=== PATIENT | female | born 1930 | race Caucasian/White ===

== ENCOUNTER → 2017-03-13 | Day surgery (SDC) | payer MEDICARE ==
[~2017-03-13] VITALS: Ht 152.4 cm; Wt 68.0 kg
[~2017-03-13] MED LIST: ANASTROZOLE1 M1 PO; ANTIVERT25 MG PO; CARVEDILOL12.5 MG PO; CELEBREX200 MG PO; COZAAR100 MG PO; DEXILANT60 M1; K + POTASSIUM20 MEQ PO; PHENERGAN12.5 M1; SYNTHROID,LEVO75 MCG PO; ULTRAM50 MG PO; VICODIN 500 MG-1 TAB PO; WATER PILL; [UNRECOGNIZED DRUG - REMARK]; [UNRECOGNIZED DRUG - REMARK]
--- NOTE | ~2017-03-13 | O ---
[place], [place] OPERATIVE NOTE NAME: SHAQ BELL UNIT #: [id number] ROOM: DOCTOR: ELADIO MORENO MD BIRTHDATE: [birth year] DOS: 03/13/2017 GASTROENDOSCOPIC REPORT HISTORY OF PRESENT ILLNESS: This is an 86-year-old patient who presented with chief complaint of right colon carcinoma status post resection. PAST MEDICAL HISTORY: Associated hypertension, hypercholesterolemia, colonic CA. PAST SURGICAL HISTORY: Right hemicolectomy, cholecystectomy. SOCIAL HISTORY: Nonsmoker, nonalcohol consumer. ALLERGIES: No known medication. PROCEDURE: Today's procedure part of investigation is colonoscopy plus polypectomy. PREMEDICATION: Versed and Diprivan. SCOPE: Olympus forward viewing colonoscope 10L video. REPORT: After putting the patient in the left lateral position and after application of lubricant to the scope, the scope was introduced. Thereafter, under direct visualization, advanced through the length of colon without difficulty. Right colon was approached and anastomotic site for right hemicolectomy noticed. Scope was gradually withdrawn from ascending, transverse, descending colon. A sessile polypoid lesion in sigmoid colon with piecemeal polypectomy was removed. Air was suctioned out. The patient was extubated, tolerated the procedure well. IMPRESSION: Sigmoid colon polyp, status post piecemeal polypectomy, status post right hemicolectomy for colonic carcinoma. PLAN AND DISCUSSION: High fiber diet. ACTIVITY: Ad veronica. FOLLOWUP: Routinely with you in office, p.r.n. visit with us in GI Clinic. Thank you very much indeed for your kind referral [place], [place] OPERATIVE NOTE NAME: SHAQ BELL UNIT #: [id number] ROOM: DOCTOR: ELADIO MORENO MD BIRTHDATE: [birth year] ELADIO MORENO MD CM:OPRECORD:OPERATIVE NOTE [id number] SWAPNA MORENO MD 03/14/17 0726 interface
[2017-03-13 08:30] VITALS: BP 139/58
[2017-03-13 09:59] VITALS: BP 137/56
[2017-03-13 10:00] VITALS: BP 133/51
[2017-03-13 10:14] VITALS: BP 139/64
== END | disposition home or self-care (01) ==
LOC: SDC 01-29 08:00
DX: K63.5 Polyp of colon (principal); Z90.49 Acquired absence of other specified parts of digestive tract; I10 Essential (primary) hypertension; E78.00 Pure hypercholesterolemia, unspecified; Z85.038 Personal history of other malignant neoplasm of large intestine; F32.9 Major depressive disorder, single episode, unspecified; K21.9 Gastro-esophageal reflux disease without esophagitis; Z85.828 Personal history of other malignant neoplasm of skin; F41.9 Anxiety disorder, unspecified; M19.90 Unspecified osteoarthritis, unspecified site; Z98.890 Other specified postprocedural states; Z82.49 Family history of ischemic heart disease and other diseases of the circulatory system

== ENCOUNTER → 2017-05-02 | Outpatient (CLI) | payer MEDICARE | END | disposition home or self-care (01) | LOC: MAMMO 10:42 | DX: C50.211 Malignant neoplasm of upper-inner quadrant of right female breast (principal) ==

== ENCOUNTER → 2018-04-22 | Outpatient (CLI) | payer MEDICARE | END | disposition home or self-care (01) | LOC: MAMMO 14:08 | DX: C50.211 Malignant neoplasm of upper-inner quadrant of right female breast (principal); R92.8 Other abnormal and inconclusive findings on diagnostic imaging of breast; I74.2 Embolism and thrombosis of arteries of the upper extremities ==

== ENCOUNTER 2018-07-13 14:24 | Inpatient (IN) | payer MEDICARE ==
[~2018-07-13] VITALS: Ht 152.4 cm; Wt 64.2 kg
--- NOTE | ~2018-07-13 | EKG ---
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
--- NOTE | ~2018-07-13 | EKG ---
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
--- NOTE | ~2018-07-13 | CON ---
[place], [place] REPORT OF CONSULTATION NAME: SHAQ BELL [facility] [id number] UNIT #: [id number] ROOM: 504 DOCTOR: TAVO GONZALEZ MD BIRTHDATE: [birth year] DOS: 07/14/2018 CARDIOLOGY CONSULTATION REASON FOR CONSULTATION: Precordial chest pain. HISTORY OF PRESENT ILLNESS: The patient is an 88-year-old woman who has no previous history of coronary disease. She tells me that she has been evaluated for chest pain in the past with stress test and did have a catheterization in [place] several years ago. To her knowledge, all of these tests were normal. She was in her normal state of health until yesterday. She ate some kielbasa and sauerkraut. After that, she developed an epigastric pain, which radiated into her back and into her chest. This was associated with nausea and vomiting along with a constant, aching sensation in her chest and shortness of breath. She also had mild diarrhea. Symptoms lasted for several hours and therefore she was brought to the Emergency Room for further assessment. In the Emergency Room, her electrocardiogram showed sinus rhythm with nonspecific inferolateral ST segment changes. Serial troponin levels were normal. She was admitted to the hospital for further assessment. PAST MEDICAL HISTORY: Includes: 1. Breast cancer. 2. Colon cancer. 3. History of closed humerus fracture. 4. Essential hypertension. 5. Hypothyroidism. 6. Anxiety. 7. History of cholecystectomy. 8. History of colon resection. 9. History of breast biopsy. FAMILY HISTORY: Negative for early coronary artery disease. Her father of cancer at age 52. Her mother of old age at 85. MEDICATIONS: Prior to admission, amlodipine 5 mg daily, carvedilol 12.5 mg one-half tablet b.i.d., Celebrex 200 mg daily, citalopram 40 mg daily and levothyroxine 50 mcg daily. ALLERGIES: She has no known drug allergies. REVIEW OF SYSTEMS: The patient denies diplopia or loss of vision. She denies lightheadedness or syncope. She denies focal weakness or history of stroke. She denies fevers, chills, sweats or recent weight gain. She denies any nausea or vomiting except for the day of admission when she did have significant nausea and vomiting that was self-limited. She did have diarrhea associated with this, but denies any coffee-ground emesis, hemoptysis, hematemesis or blood in her stools. She denies any melena. She denies any blood in her urine. She denies any skin rashes. She denies any peripheral edema. She does have degenerative joint disease. The remainder of the review of systems is negative except as noted above. [place], [place] REPORT OF CONSULTATION NAME: SHAQ BELL UNIT #: [id number] ROOM: [facility] DOCTOR: TAVO GONZALEZ MD BIRTHDATE: [birth year] SOCIAL HISTORY: The patient does not smoke or consume alcohol. PHYSICAL EXAMINATION: GENERAL: The patient is well-nourished white female, awake, alert and oriented. She looks younger than her stated age. VITAL SIGNS: Pulse is 56 and regular, blood pressure is 121/50. She is afebrile. She weighs 64.2 kg and has a body mass index of 27.6. HEENT: Normocephalic and atraumatic. Extraocular muscles are intact. Sclerae are clear. Pupils equal, round and react to light. The oral mucosa is moist. Tongue is midline. NECK: Supple. She has no jugular distention. Carotids are full. There are no bruits. She has no neck or supraclavicular masses, no thyromegaly. LUNGS: Respirations are unlabored. Her chest is clear to auscultation and percussion. She has no presacral edema or chest wall tenderness. CARDIOVASCULAR: Has a regular rhythm. She has a soft fourth heart sound, but no third heart sound or murmur. The PMI is not displaced. There is no precordial heave, lift or thrill. ABDOMEN: Soft and normally active without masses, organomegaly or bruits. EXTREMITIES: Showed no edema. Peripheral pulses are easily palpated in the feet bilaterally. LABORATORY DATA: I reviewed her electrocardiogram, which showed sinus rhythm with nonspecific inferolateral ST segment depression, but no ST elevation. IMPRESSION: 1. Atypical chest pain. 2. History of hypertension. 3. History of hypothyroidism, on replacement. 4. History of colon cancer. 5. History of breast cancer. PLAN: We will proceed with a pharmacologic stress test. Further recommendations depend upon the results of the stress test. We thank the hospitalist physicians for asking our advice regarding her care. TAVO GONZALEZ MD CM:CONSTR:REPORT OF CONSULTATION 1055 07/14/18 1155 interface
--- NOTE | ~2018-07-13 | EKG ---
[place], [place] ELECTROCARDIOGRAM REPORT NAME: SHAQ BELL UNIT #: [id number] ROOM: 504 DOCTOR: PEYTON DRAFT REPORT BIRTHDATE: [birth year] [facility] Test Date: 2018-07-13 Test Time: 14:26:50 Pat Name: SHAQ BELL Department: Room: [facility] Gender: F Assembly Associate: Polyl Sancehz : 1930 Requested By: PO NAM Order Number: [id number] Reading MD: Mello Olivares MD Measurements Intervals [place] Rate: 76 P: 37 [place]: 157 QRS: 34 QRSD: 84 T: 75 QT: 412 QTc: 464 Interpretive Statements Sinus rhythm Anterior infarct, old Minimal ST depression, lateral leads Electronically Signed On 07-14-2018 14:35:38 PST by Mello Olivares MD CM:EKGRPT:ELECTROCARDIOGRAM REPORT 1426 1435 PO DUBOSE DRAFT REPORT PO NAM DO
[2018-07-13 14:27] VITALS: BP 161/74
[2018-07-13 14:44] LABS: BASO % 0.2 % (0.0-1.0); EOS % 0.3 % (1.0-4.0); HEMATOCRIT 42.7 % (37.0-47.0); HEMOGLOBIN 14.2 g/dl (12.0-16.0); LYMPH # 1.1 10*3/uL (1.3-4.4); LYMPH % 9.7 % (27.0-41.0); MEAN CELL VOLUME 92.4 fl (81.0-99.0); MEAN CORPUSCULAR HGB 30.7 pg (27.0-31.0); MEAN CORPUSCULAR HGB CONC 33.3 g/dl (33.0-37.0); MEAN PLATELET VOLUME 10.5 fl (9.6-12.3); MONO # 0.3 10*3/uL (0.1-1.0); MONO % 2.3 % (3.0-9.0); NEUT # 9.8 10*3/uL (2.3-7.9); NEUT % 87.1 % (47.0-73.0); PLATELET COUNT AUTOMATED 232 10*3/uL (130-400); RED BLOOD COUNT 4.62 10*6/uL (4.10-5.10); RED CELL DISTRI WIDTH 13.4 % (0-14.5); WHITE BLOOD COUNT 11.3 10*3/uL (4.8-10.8)
[2018-07-13] MEDS ORDERED: CELECOXIB200 M1 PO (15:03)
[2018-07-13] MEDS ORDERED: AMLODIPINE BESYL5 MG PO (15:03)
[2018-07-13] MEDS ORDERED: LEVOTHYROXINE50 MCG PO (15:03)
[2018-07-13] MEDS ORDERED: CITALOPRAM HYDR40 MG PO (15:04)
[2018-07-13 15:09] LABS: ALBUMIN 3.7 gm/dl (3.1-4.5); ALKALINE PHOSPHATASE 116 U/L (45-117); BUN 16 mg/dl (7-24); CHLORIDE 109 mmol/L (98-107); CREATININE 0.92 mg/dL (0.55-1.02); POTASSIUM 4.6 mmol/L (3.5-5.1); SGOT/AST 32 IU/L (3-35); SGPT/ALT 35 U/L (12-78); SODIUM 140 mmol/L (136-145); TOTAL PROTEIN 7.6 gm/dL (6.4-8.2)
[2018-07-13 15:11] LABS: TROPONIN I < 0.015 ng/ml (<0.045)
[2018-07-13 16:01] VITALS: BP 133/61
[2018-07-13 16:20] VITALS: BP 156/55
[2018-07-13 20:00] VITALS: BP 152/51
[2018-07-14] VITALS: BP 121/50
[2018-07-14 07:02] LABS: BASO % 0.4 % (0.0-1.0); EOS # 0.1 10*3/uL (0.0-0.4); HEMATOCRIT 39.6 % (37.0-47.0); HEMOGLOBIN 12.8 g/dl (12.0-16.0); LYMPH % 19.9 % (27.0-41.0); MEAN CELL VOLUME 93.6 fl (81.0-99.0); MEAN CORPUSCULAR HGB 30.3 pg (27.0-31.0); MEAN CORPUSCULAR HGB CONC 32.3 g/dl (33.0-37.0); MEAN PLATELET VOLUME 9.7 fl (9.6-12.3); MONO # 0.3 10*3/uL (0.1-1.0); MONO % 5.7 % (3.0-9.0); NEUT # 3.6 10*3/uL (2.3-7.9); NEUT % 71.6 % (47.0-73.0); PLATELET COUNT AUTOMATED 169 10*3/uL (130-400); RED BLOOD COUNT 4.23 10*6/uL (4.10-5.10); RED CELL DISTRI WIDTH 13.4 % (0-14.5); WHITE BLOOD COUNT 5.1 10*3/uL (4.8-10.8)
[2018-07-14 07:21] LABS: ALBUMIN 3.1 gm/dl (3.1-4.5); ALKALINE PHOSPHATASE 91 U/L (45-117); BUN 15 mg/dl (7-24); CHLORIDE 108 mmol/L (98-107); CHOLESTEROL 138 mg/dL (<200); CREATININE 1.01 mg/dL (0.55-1.02); FREE T4 0.99 ng/dl (0.76-1.46); HDL CHOLESTEROL 31 mg/dl (40-60); LDL CHOLESTEROL 76 mg/dL (9-159); PHOSPHOROUS 3.3 mg/dL (2.5-4.9); POTASSIUM 4.2 mmol/L (3.5-5.1); SGOT/AST 28 IU/L (3-35); SGPT/ALT 35 U/L (12-78); SODIUM 140 mmol/L (136-145); TOTAL PROTEIN 6.8 gm/dL (6.4-8.2); TRIGLYCERIDES 155 mg/dl (<150); VLDL CHOLESTEROL 31 mg/dL (6-40)
[2018-07-14 07:26] LABS: THYROID STIM HORMONE (HS) 0.621 uIU/ml (0.358-4.75)
[2018-07-14 10:05] LABS: VITAMIN D, 25-HYDROXY 17.4 ng/mL (30-100)
[2018-07-14 12:00] VITALS: BP 112/49
[2018-07-14 16:00] VITALS: BP 121/45
== END 2018-07-14 17:03 | disposition home or self-care (01) | DRG 206 ==
LOC: ED 14:24 → 5E 15:22 → EDHOLD 15:22 → 5E 16:29
PROVIDERS: Emergency Medicine; Registered Nurse; ADMIT Internal Medicine
PROC: 4A02XM4 Measurement of Cardiac Total Activity, External Approach (ICD-10-PCS; principal; 2018-07-14)
PROC: 3E073KZ Introduction of Other Diagnostic Substance into Coronary Artery, Percutaneous Approach (ICD-10-PCS; principal; 2018-07-14)
DX: M94.0 Chondrocostal junction syndrome [Tietze] (principal); K21.9 Gastro-esophageal reflux disease without esophagitis; R07.89 Other chest pain; E03.9 Hypothyroidism, unspecified; D72.829 Elevated white blood cell count, unspecified; R73.9 Hyperglycemia, unspecified; E87.8 Other disorders of electrolyte and fluid balance, not elsewhere classified; I10 Essential (primary) hypertension; F41.9 Anxiety disorder, unspecified; Z90.49 Acquired absence of other specified parts of digestive tract; Z83.3 Family history of diabetes mellitus; Z82.49 Family history of ischemic heart disease and other diseases of the circulatory system; Z82.3 Family history of stroke; Z87.81 Personal history of (healed) traumatic fracture; Z80.3 Family history of malignant neoplasm of breast; Z80.0 Family history of malignant neoplasm of digestive organs; Z80.8 Family history of malignant neoplasm of other organs or systems

== ENCOUNTER → 2019-08-17 | Outpatient (CLI) | payer MEDICARE ==
[~2019-08-17] MED LIST changes: +AMLODIPINE BESYL5 MG PO; +CELECOXIB200 M1 PO; +CITALOPRAM HYDR40 MG PO; +LEVOTHYROXINE50 MCG PO
[2019-08-17 10:54] LABS: BASO # 0.1 10*3/uL (0.0-0.1); BASO % 1.4 % (0.0-1.0); EOS # 0.2 10*3/uL (0.0-0.4); EOS % 3.1 % (1.0-4.0); HEMATOCRIT 43.2 % (37.0-47.0); HEMOGLOBIN 13.8 g/dl (12.0-16.0); LYMPH # 1.8 10*3/uL (1.3-4.4); LYMPH % 35.5 % (27.0-41.0); MEAN CELL VOLUME 93.9 fl (81.0-99.0); MEAN CORPUSCULAR HGB CONC 31.9 g/dl (33.0-37.0); MEAN PLATELET VOLUME 10.3 fl (9.6-12.3); MONO # 0.3 10*3/uL (0.1-1.0); MONO % 6.3 % (3.0-9.0); NEUT # 2.7 10*3/uL (2.3-7.9); NEUT % 53.5 % (47.0-73.0); PLATELET COUNT AUTOMATED 230 10*3/uL (130-400); RED CELL DISTRI WIDTH 13.2 % (0-14.5); WHITE BLOOD COUNT 5.1 10*3/uL (4.8-10.8)
[2019-08-17 11:13] LABS: CREATININE 1.16 mg/dL (0.55-1.02); POTASSIUM 4.4 mmol/L (3.5-5.1)
== END | disposition home or self-care (01) ==
LOC: LAB 10:19
PROVIDERS: Family Medicine
DX: I10 Essential (primary) hypertension (principal); E03.9 Hypothyroidism, unspecified; K21.9 Gastro-esophageal reflux disease without esophagitis; Z79.899 Other long term (current) drug therapy

== ENCOUNTER 2020-10-02 19:19 | Emergency (ER) | payer OTHER ==
[~2020-10-02] VITALS: Ht 152.4 cm; Wt 61.2 kg
[2020-10-02 19:59] VITALS: BP 200/88
[2020-10-02] MEDS ORDERED: HYDROCODONE-AC1 EAC1 PO ×2 (20:13→20:15)
== END 2020-10-02 20:59 | disposition home or self-care (01) ==
LOC: ED 19:19
DX: S52.532A Colles' fracture of left radius, initial encounter for closed fracture (principal); S52.602A Unspecified fracture of lower end of left ulna, initial encounter for closed fracture; I10 Essential (primary) hypertension; E78.5 Hyperlipidemia, unspecified; K21.9 Gastro-esophageal reflux disease without esophagitis; M19.90 Unspecified osteoarthritis, unspecified site; Z79.899 Other long term (current) drug therapy; Z90.49 Acquired absence of other specified parts of digestive tract; W13.3XXA Fall through floor, initial encounter; Y93.E2 Activity, laundry; Y92.89 Other specified places as the place of occurrence of the external cause; Y99.8 Other external cause status

== ENCOUNTER → 2021-02-13 | Outpatient (CLI) | payer OTHER ==
[~2021-02-13] MED LIST changes: +HYDROCODONE-AC1 EAC1 PO
== END | disposition home or self-care (01) ==
LOC: RAD 11:54
PROVIDERS: ATTEND Family Medicine
DX: J98.4 Other disorders of lung (principal); R05 Cough

== ENCOUNTER → 2021-08-03 | Outpatient (CLI) | payer OTHER | END | disposition home or self-care (01) | LOC: COVID19 15:23 | PROVIDERS: ATTEND Podiatrist Foot & Ankle Surgery | DX: Z20.822 Contact with and (suspected) exposure to COVID-19 (principal) ==

== ENCOUNTER 2021-09-07 11:52 | Observation (INO) | payer OTHER ==
[~2021-09-07] VITALS: Ht 152.4 cm; Wt 64.4 kg
[2021-09-07 11:56] VITALS: BP 199/89
[2021-09-07 12:50] LABS: BASO # 0.1 10*3/uL (0.0-0.1); BASO % 0.8 % (0.0-1.0); EOS # 0.1 10*3/uL (0.0-0.4); EOS % 1.4 % (1.0-4.0); LYMPH # 1.5 10*3/uL (1.3-4.4); LYMPH % 24.8 % (27.0-41.0); MEAN CELL VOLUME 91.5 fl (81.0-99.0); MEAN CORPUSCULAR HGB 30.4 pg (27.0-31.0); MEAN CORPUSCULAR HGB CONC 33.3 g/dl (33.0-37.0); MEAN PLATELET VOLUME 9.6 fl (9.6-12.3); MONO # 0.3 10*3/uL (0.1-1.0); MONO % 5.2 % (3.0-9.0); NEUT # 4.2 10*3/uL (2.3-7.9); NEUT % 67.5 % (47.0-73.0); PLATELET COUNT AUTOMATED 232 10*3/uL (130-400); RED CELL DISTRI WIDTH 13.3 % (0-14.5); WHITE BLOOD COUNT 6.2 10*3/uL (4.8-10.8)
[2021-09-07 13:00] LABS: BILIRUBIN Negative (Negative); BLOOD Negative (Negative); CLARITY Clear (Clear); COLOR Yellow (Yellow); GLUCOSE Negative (Negative); KETONE Negative (Negative); LEUKO ESTERASE Trace (Negative); NITRITE Negative (Negative); SPECIFIC GRAVITY <= 1.005 (1.001-1.030); UROBILINOGEN 0.2 E.U./dl (0.0-1.0)
[2021-09-07 13:06] LABS: ALKALINE PHOSPHATASE 96 U/L (45-117); BUN 14 mg/dl (7-24); CHLORIDE 103 mmol/L (98-107); CREATININE 1.04 mg/dL (0.55-1.02); POTASSIUM 4.5 mmol/L (3.5-5.1); SGOT/AST 27 IU/L (3-35); SGPT/ALT 35 U/L (12-78); SODIUM 134 mmol/L (136-145); TOTAL PROTEIN 8.3 gm/dL (6.4-8.2)
[2021-09-07 13:17] LABS: BACTERIA TRACE
[2021-09-07 15:19] VITALS: BP 188/78
[2021-09-07 15:52] VITALS: BP 150/58
[2021-09-07 16:35] VITALS: BP 169/63
[2021-09-07 20:00] VITALS: BP 150/55
[2021-09-08] VITALS: BP 134/60
[2021-09-08 06:10] LABS: BASO # 0.1 10*3/uL (0.0-0.1); EOS # 0.2 10*3/uL (0.0-0.4); EOS % 3.1 % (1.0-4.0); HEMATOCRIT 40.7 % (37.0-47.0); LYMPH # 1.6 10*3/uL (1.3-4.4); LYMPH % 30.4 % (27.0-41.0); MEAN CELL VOLUME 92.7 fl (81.0-99.0); MEAN CORPUSCULAR HGB 30.5 pg (27.0-31.0); MEAN CORPUSCULAR HGB CONC 32.9 g/dl (33.0-37.0); MEAN PLATELET VOLUME 10.1 fl (9.6-12.3); MONO # 0.5 10*3/uL (0.1-1.0); MONO % 9.3 % (3.0-9.0); NEUT # 2.9 10*3/uL (2.3-7.9); PLATELET COUNT AUTOMATED 241 10*3/uL (130-400); RED BLOOD COUNT 4.39 10*6/uL (4.10-5.10); RED CELL DISTRI WIDTH 13.6 % (0-14.5); WHITE BLOOD COUNT 5.2 10*3/uL (4.8-10.8)
[2021-09-08 06:27] LABS: ACT PARTIAL THROMBO TIME 26.1 SECONDS (20.0-32.1)
[2021-09-08 06:30] LABS: POTASSIUM 4.4 mmol/L (3.5-5.1)
[2021-09-08 06:39] LABS: CREATININE 1.12 mg/dL (0.55-1.02); FREE T4 0.79 ng/dl (0.76-1.46); THYROID STIM HORMONE (HS) 9.25 uIU/ml (0.358-4.75); TOTAL PROTEIN 7.1 gm/dL (6.4-8.2)
[2021-09-08 07:54] LABS: VITAMIN D, 25-HYDROXY 19.1 ng/mL (30-100)
[2021-09-08 08:00] VITALS: BP 140/58
[2021-09-08 12:00] VITALS: BP 126/50
[2021-09-08] MEDS ORDERED: LISINOPRIL10 M1 PO (13:32)
[2021-09-08 16:00] VITALS: BP 134/49
== END 2021-09-08 17:41 | disposition home or self-care (01) ==
LOC: ED 11:52 → 4E 15:22 → EDHOLD 15:22 → 4E 15:22
PROVIDERS: Internal Medicine; Physician Assistant; ADMIT Family Medicine; ATTEND Family Medicine
DX: I16.1 Hypertensive emergency (principal); E87.1 Hypo-osmolality and hyponatremia; I10 Essential (primary) hypertension; H26.9 Unspecified cataract; R55 Syncope and collapse; F41.9 Anxiety disorder, unspecified; E78.5 Hyperlipidemia, unspecified; E03.9 Hypothyroidism, unspecified; W19.XXXA Unspecified fall, initial encounter; Z79.899 Other long term (current) drug therapy

== ENCOUNTER → 2022-01-22 | Outpatient (CLI) | payer OTHER ==
[~2022-01-22] MED LIST changes: +LISINOPRIL10 M1 PO
[2022-01-22 12:15] LABS: BASO # 0.1 10*3/uL (0.0-0.1); EOS # 0.1 10*3/uL (0.0-0.4); EOS % 2.1 % (1.0-4.0); HEMATOCRIT 43.7 % (37.0-47.0); LYMPH # 2.2 10*3/uL (1.3-4.4); LYMPH % 36.5 % (27.0-41.0); MEAN CELL VOLUME 93.8 fl (81.0-99.0); MEAN PLATELET VOLUME 9.9 fl (9.6-12.3); MONO # 0.3 10*3/uL (0.1-1.0); MONO % 4.8 % (3.0-9.0); NEUT # 3.4 10*3/uL (2.3-7.9); NEUT % 55.4 % (47.0-73.0); PLATELET COUNT AUTOMATED 246 10*3/uL (130-400); RED BLOOD COUNT 4.66 10*6/uL (4.10-5.10); RED CELL DISTRI WIDTH 13.4 % (0-14.5); WHITE BLOOD COUNT 6.1 10*3/uL (4.8-10.8)
[2022-01-22 12:49] LABS: ALKALINE PHOSPHATASE 118 U/L (45-117); BUN 15 mg/dl (7-24); CHLORIDE 102 mmol/L (98-107); CHOLESTEROL 181 mg/dL (<200); CREATININE 0.98 mg/dL (0.55-1.02); IRON 66 ug/dL (50-170); LDL CHOLESTEROL 94 mg/dL (9-159); POTASSIUM 4.9 mmol/L (3.5-5.1); SGOT/AST 26 IU/L (3-35); SGPT/ALT 27 U/L (12-78); SODIUM 135 mmol/L (136-145); TOTAL PROTEIN 7.6 gm/dL (6.4-8.2); TRIGLYCERIDES 220 mg/dl (<150)
== END | disposition home or self-care (01) ==
LOC: LAB 11:49
PROVIDERS: ATTEND Nurse Practitioner Family
DX: I10 Essential (primary) hypertension (principal); R53.83 Other fatigue; E03.9 Hypothyroidism, unspecified; D64.9 Anemia, unspecified